=== PATIENT | female | born 1985 | race Caucasian/White ===

== ENCOUNTER 2023-05-03 13:56 | Emergency (ER) | payer OTHER, SELFPAY ==
--- NOTE | 2023-05-03 14:00 | DI.RAD_ITS ---
Exam(s) XR HAND RT COMPLETE EXAM: XR HAND RT COMPLETE CLINICAL HISTORY: pain s/p hit with golf ball. TECHNIQUE: 2D digital imaging was performed of the right hand. Three images were obtained. AP, late ral and oblique views were obtained. COMPARISON: No exams were available for comparison FINDINGS: BONES: There is a nondisplaced fracture at the medial aspect of the base of the distal phalanx of the middle finger. This is best appreciated on the oblique view. No bony destructive lesion is seen. JOINTS: No dislocation present. The joint spaces are well maintained. SOFT TISSUE: Normal. IMPRESSION: 1. Nondisplaced fracture through the medial aspect of the base of the distal phalanx of the middle fi nger. 2. Findings were discussed with Jose Abernathy at 9:23 p.m. on 05/03/2023. DATA REPOSITORY: RADIATION DOSE DELIVERED:
[2023-05-03 14:02] VITALS: BP 113/69; PULSE 95; RESP 16; TEMP 36.9; O2SAT 100
--- NOTE | 2023-05-03 14:14 | ED.GENADUL_ITS ---
Discharge Plan Disposition Patient Disposition: Home Condition: Stable Discharge Details Chief Complaint: Orthopedic Clinical Impression: Contusion of hand, right Primary Care Provider: Unknown,Unknown ED Provider: Gene Dunaway Discharge Instructions Instructions: Contusion in Adults (ED) Additional Instructions: Your xray did not show a broken bone if pain continues in a week follow up with your primary care provider if you feel more ill or have severe worsening pain return to the emergency department Medical Decision Making 38 yo female who denies chronic medical problems comes in with right hand pain. She states just prior to arrival she was golfing and her hit a ball that he shanked and it hit her in the right hand. Denies falls or loc. She has pain in the right distal middle and index finger. She has full rom, normal cap refill, no tenderness of the wrist with full rom. She has tenderness over the middle and index fingers on the right hand on the distal portion. Suspect contusion but will xray to evaluate for fracture. imaging unremarkable, pt stable, suspect contusion. Advised if pain continues in a week to see pcp, return precautions given Differential Diagnosis Differential Diagnosis: fracture, contusion Imaging Data Radiologic Study: Attestation: I personally reviewed and interpreted this imaging study as follows: Imaging: X-Ray Radiologist's impression: IMPRESSION: No evidence for acute bony injury. If clinical symptoms persist recommend followup film in 7-10 days HPI General Mode of arrival: ambulatory . Date/Time Provider Initiated Documentation: 05/03/23 13:58 . Limitations to Documentation: no limitations . Information obtained by: patient . History of Present Illness 38 year old F presents to the emergency department with the chief complaint of right hand pain s/p hit with golf ball, described as moderate, and it has been constant. No relieving factors improve symptom(s), No exacerbating factors reported . Patient notes no other symptoms.. Patient did receive the following treatments prior to arrival, none General Stated Complaint: Orthopedic BRUCE: 3 Review of Systems All systems reviewed & are unremarkable except as noted in HPI and below Constitutional Constitutional: Denies chills, Denies fever(s) and Denies weakness Cardiovascular Cardiovascular: Denies chest pain and Denies dyspnea Respiratory Respiratory: Denies cough and Denies dyspnea Gastrointestinal Gastrointestinal: Denies abdominal pain, Denies nausea and Denies vomiting Musculoskeletal Musculoskeletal: Denies joint swelling Integumentary/Breasts Skin/Breast: Denies rash Neurologic Neurologic: Denies weakness PFSH All Active Problems (Updated 05/03/23 @ 15:42 by Gene Dunaway MD) Contusion of hand, right (Acute) Social History Smoking/Tobacco Use Status: Never Smoking risk assessment performed?: Yes Substance use type: does not use Do you feel safe at home: Yes Do you feel safe in your relationship?: Yes Exam Const General: no acute distress Orientation: alert HENMT Head: normal to inspection Ears: external ears normal General nose exam: external nose normal Mouth: moist mucous membranes Eyes General: appearance normal, both eyes and all related structures Neck Neck: normal visual inspection Resp Effort & Inspection: normal respiratory effort and able to speak in complete sentences Cardio Rate: regular rate Skin General skin exam: no rashes or lesions noted Neuro General: patient alert and patient oriented x3 Extrem General: full ROM and capillary refill normal Psych Mental Status: mental status grossly normal Course Vital Signs Vital signs: Vital Signs Temperature 36.9 C 05/03/23 14:02 Pulse 95 H 05/03/23 14:02 Respiratory Rate 16 05/03/23 14:02 Blood Pressure 113/69 05/03/23 14:02 Pulse Oximetry 100 05/03/23 14:02 Temperature 36.9 C 05/03/23 14:02 Pulse 95 H 05/03/23 14:02 Respiratory Rate 16 05/03/23 14:02 Blood Pressure 113/69 05/03/23 14:02 Pulse Oximetry 100 05/03/23 14:02 Oxygen Delivery Method Room Air 05/03/23 14:02 Oxygen Flow Rate 0 05/03/23 14:02 Pain Level 2 05/03/23 14:02
--- NOTE | 2023-05-03 15:37 | DI.VRAD_ITS ---
PROCEDURE INFORMATION: Exam: XR Right Hand Exam date and time: 05/03/2023 3:07 PM Age: 38 years old Clinical indication: Other: Right hand pain, hit by golf ball TECHNIQUE: Imaging protocol: Radiologic exam of the right hand. Views: 3 or more views. COMPARISON: No relevant prior studies available. FINDINGS: Bones/joints: Unremarkable. Soft tissues: Unremarkable. IMPRESSION: No evidence for acute bony injury. If clinical symptoms persist recommend followup film in 7-10 days. Dictated and Authenticated by: Nely Marin MD. Ordering:LANCE Mills MD
--- NOTE | 2023-05-03 21:31 | W.ED.FU ---
Follow Up Plan: Received report from radiologist that there was a subtle distal phalanx fracture. Attempted to contact patient to inform her of her fracture but unfortunately the phone number that was listed was incorrect and we were not able to contact her.
== END 2023-05-03 15:48 | disposition home or self-care (01) ==
PROVIDERS: Emergency Provider Emergency Medicine
DX: M79.641 Pain in right hand; S60.221A Contusion of right hand, initial encounter; W21.04XA Struck by golf ball, initial encounter
CPT/HCPCS: 99283; 73130